=== PATIENT | male | born 1990 | race Caucasian/White ===

== ENCOUNTER → 2021-07-16 16:44 | Outpatient (CLI) | payer OTHER, MEDICAID, SELFPAY ==
[2021-07-16 21:10] LABS: Urine N gonorrhoeae NOT DETECTED
[2021-07-16 21:12] LABS: Urine Chlamydia NOT DETECTED
== END ==
PROVIDERS: Visit Provider Nurse Practitioner
DX: N48.89 Other specified disorders of penis (principal); N39.0 Urinary tract infection, site not specified
CPT/HCPCS: 81002; 87086; 87491; 87591

== ENCOUNTER → 2024-11-21 12:48 | Outpatient (CLI) | payer OTHER, SELFPAY ==
[2024-11-21 14:01] LABS: Lithium 0.2 mmol/L (0.6-1.2)
[2024-11-21 14:03] LABS: BUN Creatinine Ratio 11.6 (6-22); Blood Urea Nitrogen 11 mg/dL (9-20); Calcium 9.1 mg/dL (8.4-10.2); Carbon Dioxide 28 mmol/L (22-32); Chloride 104 mmol/L (98-107); Estimated Glomerular Filt Rate > 60 mL/min (>60); Glucose 83 mg/dL (70-100); HEMOLYSIS < 15 (0-50); Potassium 3.6 mmol/L (3.4-5.1); Sodium 139 mmol/L (137-145)
[2024-11-21 14:35] LABS: TSH w/ Reflex to FT4 1.27 uIU/mL (0.47-4.68)
[2024-11-21 14:57] LABS: Vitamin D 25 Hydroxy (D3) 86.4 ng/mL (30.0-100.0)
[2024-11-21 15:11] LABS: Folate 7.5 ng/mL (2.76-20.0); Vitamin B12 576 pg/mL (239-931)
== END ==
PROVIDERS: PCP Family Medicine; Referring Provider Student in an Organized Health Care Education/Training Program; Visit Provider Student in an Organized Health Care Education/Training Program
DX: Z51.81 Encounter for therapeutic drug level monitoring (principal); F31.9 Bipolar disorder, unspecified
CPT/HCPCS: 80048; 80178; 82306; 82607; 82746; 84443

== ENCOUNTER → 2024-12-06 15:04 | Outpatient (CLI) | payer OTHER, SELFPAY ==
[2024-12-06 16:59] LABS: Lithium 0.4 mmol/L (0.6-1.2)
== END ==
PROVIDERS: PCP Family Medicine; Referring Provider Student in an Organized Health Care Education/Training Program; Visit Provider Student in an Organized Health Care Education/Training Program
DX: Z79.899 Other long term (current) drug therapy (principal)
CPT/HCPCS: 36415; 80178

== ENCOUNTER → 2024-12-20 14:37 | Outpatient (CLI) | payer OTHER, SELFPAY ==
[2024-12-20 15:42] LABS: Lithium 0.7 mmol/L (0.6-1.2)
== END ==
PROVIDERS: PCP Family Medicine; Referring Provider Student in an Organized Health Care Education/Training Program; Visit Provider Student in an Organized Health Care Education/Training Program
DX: F31.9 Bipolar disorder, unspecified (principal); Z51.81 Encounter for therapeutic drug level monitoring
CPT/HCPCS: 36415; 80178